=== PATIENT | female | born 1960 | race Caucasian/White ===

== ENCOUNTER → 2017-01-22 | Outpatient (REF) | payer BC | LOC: M SFHCPLAZ 16:57 | PROVIDERS: ATTEND Dermatology | DX: L83 Acanthosis nigricans (principal) ==

== ENCOUNTER → 2017-07-05 | Outpatient (REF) | payer BC | LOC: M SFHCWAGY 15:29 | PROVIDERS: ATTEND Nurse Practitioner Family | DX: A60.04 Herpesviral vulvovaginitis (principal) ==

== ENCOUNTER → 2017-11-18 | Outpatient (CLI) | payer BC | LOC: M WHC 13:54 | DX: Z12.31 Encounter for screening mammogram for malignant neoplasm of breast (principal) | CPT/HCPCS: 77067 ==

== ENCOUNTER → 2018-02-19 | Outpatient (CLI) | payer BC ==
[2018-02-19 08:18] LABS: HEMATOCRIT 38.6 % (36.0-47.0); HEMOGLOBIN 13.4 g/dl (12.0-15.5); MEAN CORPUSCULAR HEMOGLOBIN 33.8 pg (27.0-33.0); MEAN CORPUSCULAR HGB CONC 34.7 g/dl (32.0-36.5); MEAN CORPUSCULAR VOLUME 97.2 fl (80.0-96.0); PLATELET COUNT, AUTOMATED 244 10^3/uL (150-450); RED BLOOD COUNT 3.97 10^6/uL (4.00-5.40); RED CELL DISTRIBUTION WIDTH 11.3 % (11.5-14.5); WHITE BLOOD COUNT 5.4 10^3/uL (4.0-10.0)
[2018-02-19 08:38] LABS: ALBUMIN 4.1 GM/DL (3.2-5.2); ALBUMIN/GLOBULIN RATIO 1.32 (1.00-1.93); ALKALINE PHOSPHATASE 74 U/L (45-117); ALT/SGPT 27 U/L (12-78); ANION GAP 5 MEQ/L (8-16); AST/SGOT 20 U/L (7-37); BILIRUBIN,TOTAL 0.6 MG/DL (0.2-1.0); BLOOD UREA NITROGEN 12 MG/DL (7-18); CALCIUM LEVEL 8.9 MG/DL (8.5-10.1); CARBON DIOXIDE LEVEL 29 MEQ/L (21-32); CHLORIDE LEVEL 108 MEQ/L (98-107); CHOLESTEROL LEVEL 213 MG/DL (<200); CHOLESTEROL RISK RATIO 2.173 (<5); GLOMERULAR FILTRATION RATE > 60.0 (>51); GLUCOSE, FASTING 105 MG/DL (70-100); HDL CHOLESTEROL 98 MG/DL (>40); LDL CHOLESTEROL 102.6 MG/DL (<100); NON-HDL-C 115 MG/DL; POTASSIUM SERUM 4.4 MEQ/L (3.5-5.1); SODIUM LEVEL 142 MEQ/L (136-145); TOTAL PROTEIN 7.2 GM/DL (6.4-8.2); TRIGLYCERIDES LEVEL 62 MG/DL (<150)
== END ==
LOC: M LAB 07:17
DX: Z00.00 Encounter for general adult medical examination without abnormal findings (principal); Z86.010 Personal history of colon polyps; Z82.49 Family history of ischemic heart disease and other diseases of the circulatory system
CPT/HCPCS: 80053

== ENCOUNTER → 2019-09-05 | Outpatient (CLI) | payer BC ==
[2019-09-05 09:20] LABS: HEMATOCRIT 41.9 % (36.0-47.0); HEMOGLOBIN 14.2 g/dl (12.0-15.5); MEAN CORPUSCULAR HEMOGLOBIN 34.1 pg (27.0-33.0); MEAN CORPUSCULAR HGB CONC 33.9 g/dl (32.0-36.5); MEAN CORPUSCULAR VOLUME 100.5 fl (80.0-96.0); PLATELET COUNT, AUTOMATED 245 10^3/uL (150-450); RED BLOOD COUNT 4.17 10^6/uL (4.00-5.40); WHITE BLOOD COUNT 5.1 10^3/uL (4.0-10.0)
[2019-09-05 09:52] LABS: ALBUMIN 4.1 GM/DL (3.2-5.2); ALT/SGPT 30 U/L (12-78); BILIRUBIN,TOTAL 0.4 MG/DL (0.2-1.0); BLOOD UREA NITROGEN 13 MG/DL (7-18); CALCIUM LEVEL 9.1 MG/DL (8.5-10.1); CARBON DIOXIDE LEVEL 30 MEQ/L (21-32); CHLORIDE LEVEL 108 MEQ/L (98-107); CHOLESTEROL LEVEL 235 MG/DL (<200); CHOLESTEROL RISK RATIO 2.098 (<5); CREATININE FOR GFR 0.66 MG/DL (0.55-1.30); GLOMERULAR FILTRATION RATE > 60.0 (>51); GLUCOSE, FASTING 92 MG/DL (70-100); HDL CHOLESTEROL 112 MG/DL (>40); LDL CHOLESTEROL 103 MG/DL (<100); NON-HDL-C 123 MG/DL; POTASSIUM SERUM 4.3 MEQ/L (3.5-5.1); SODIUM LEVEL 143 MEQ/L (136-145); THYROID STIMULATING HORMONE 0.781 uIU/ML (0.358-3.740); TOTAL PROTEIN 7.7 GM/DL (6.4-8.2); TRIGLYCERIDES LEVEL 100 MG/DL (<150)
== END ==
LOC: M LAB 08:23
PROVIDERS: ATTEND Internal Medicine
DX: Z00.00 Encounter for general adult medical examination without abnormal findings (principal); Z82.49 Family history of ischemic heart disease and other diseases of the circulatory system; R23.2 Flushing

== ENCOUNTER → 2020-04-27 | Outpatient (CLI) | payer BC | LOC: M LABSMTC 10:40 | PROVIDERS: ATTEND Pediatrics | DX: Z11.59 Encounter for screening for other viral diseases (principal) ==

== ENCOUNTER → 2020-10-30 | Outpatient (REF) | payer SELFPAY | LOC: M LABSMTC 10-14 08:35 → EDSTATUS 11:20 | PROVIDERS: ATTEND Pediatrics | DX: Z20.828 Contact with and (suspected) exposure to other viral communicable diseases (principal) ==

== ENCOUNTER → 2021-01-25 | Outpatient (CLI) | payer BC ==
[2021-01-25 07:17] LABS: BASO # 0.1 10^3/uL (0.0-0.2); EOS # 0.3 10^3/uL (0.0-0.5); EOS % 4.9 % (0.0-3.0); HEMATOCRIT 42.1 % (36.0-47.0); HEMOGLOBIN 14.1 g/dl (12.0-15.5); LYMPH % 59.1 % (24.0-44.0); MEAN CORPUSCULAR HEMOGLOBIN 33.4 pg (27.0-33.0); MEAN CORPUSCULAR HGB CONC 33.5 g/dl (32.0-36.5); MEAN CORPUSCULAR VOLUME 99.8 fl (80.0-96.0); MONO # 0.3 10^3/uL (0.0-0.8); MONO % 5.7 % (2.0-8.0); NEUTROPHILS # 1.5 10^3/uL (1.5-8.5); NEUTROPHILS % 29.3 % (36.0-66.0); PLATELET COUNT, AUTOMATED 278 10^3/uL (150-450); RED BLOOD COUNT 4.22 10^6/uL (4.00-5.40); WHITE BLOOD COUNT 5.1 10^3/uL (4.0-10.0)
[2021-01-25 07:46] LABS: ALBUMIN 4.2 GM/DL (3.2-5.2); ALT/SGPT 30 U/L (12-78); BILIRUBIN,TOTAL 0.3 MG/DL (0.2-1.0); BLOOD UREA NITROGEN 10 MG/DL (7-18); CALCIUM LEVEL 9.2 MG/DL (8.5-10.1); CARBON DIOXIDE LEVEL 31 MEQ/L (21-32); CHLORIDE LEVEL 102 MEQ/L (98-107); CHOLESTEROL LEVEL 250 MG/DL (<200); CHOLESTEROL RISK RATIO 1.798 (<5); CREATININE FOR GFR 0.61 MG/DL (0.55-1.30); GLOMERULAR FILTRATION RATE > 60.0 (>51); GLUCOSE, FASTING 85 MG/DL (70-100); HDL CHOLESTEROL 139 MG/DL (>40); LDL CHOLESTEROL 85 MG/DL (<100); NON-HDL-C 111 MG/DL; POTASSIUM SERUM 3.9 MEQ/L (3.5-5.1); SODIUM LEVEL 139 MEQ/L (136-145); TOTAL PROTEIN 7.5 GM/DL (6.4-8.2); TRIGLYCERIDES LEVEL 130 MG/DL (<150)
[2021-01-25 11:25] LABS: HEPATITIS C VIRUS ABY INDEX < 0.0 INDEX (<0.8)
== END ==
LOC: M LAB 06:32
PROVIDERS: ATTEND Internal Medicine
DX: E78.00 Pure hypercholesterolemia, unspecified (principal); Z86.010 Personal history of colon polyps

== ENCOUNTER → 2021-02-20 | Outpatient (REF) | payer BC ==
[2021-02-20 13:44] LABS: APPEARANCE, URINE HAZY (CLEAR); BACTERIA, URINE AUTO NEGATIVE (NEGATIVE); BILIRUBIN, URINE AUTO NEGATIVE (NEGATIVE); BLOOD, URINE BLOOD NEGATIVE (NEGATIVE); COLOR, URINE YELLOW (YELLOW); GLUCOSE, URINE (UA) AUTO NEGATIVE (NEGATIVE); KETONE, URINE AUTO NEGATIVE (NEGATIVE); LEUKOCYTE ESTERASE, URINE AUTO NEGATIVE (NEGATIVE); NITRITE, URINE AUTO NEGATIVE (NEGATIVE); PROTEIN, URINE AUTO NEGATIVE (NEGATIVE); RBC, URINE AUTO 0 /HPF (0-3); SPECIFIC GRAVITY URINE AUTO 1.006 (1.002-1.035); SQUAMOUS EPITHELIAL CELL UR AU 0 /HPF (0-6); UROBILINOGEN, URINE AUTO 0.2 mg/dL (0.0-2.0); WBC, URINE AUTO 0 /HPF (0-3)
== END ==
LOC: M SFHCPLAZ 13:26
PROVIDERS: ATTEND Internal Medicine
DX: R10.9 Unspecified abdominal pain (principal)

== ENCOUNTER → 2021-02-27 | Outpatient (CLI) | payer BC ==
--- NOTE | 2021-02-28 08:41 | REPMRS ---
Patient History The patient states she has not had a clinical breast exam in over a year. Patient has history of other cancer at age 56. Family history of prostate cancer at age 79 in father. No Hormone Replacement Therapy Patient states no breast complaints today. Patient has signed MRS History Sheet. Digital Woman Screen Mammo: February 27, 2021 - Exam #: [id number] Bilateral CC and MLO view(s) were taken. Technologist: Archana Clemens, Technologist Prior study comparison: November 18, 2017, digital woman screen mammo performed at [facility]. September 17, 2016, digital woman screen mammo performed at [facility]. FINDINGS: The breast tissue is heterogeneously dense. This may lower the sensitivity of mammography. Screening. Digital screening (2D) mammography was performed bilaterally in the CC and MLO projections. Additionally, breast tomosynthesis (3D mammography) was performed bilaterally in the CC and MLO projections. Todays exam was compared to the prior exams(s). By history, the patient has no complaints of a palpable breast abnormality or other significant breast complaints. The breasts are unchanged in size and shape.Once again, dense heterogenous fibroglandular elements are seen bilaterally in a stable appearing pattern but to such a degree that the sensitivity of the mammogram in detecting cancer is decreased. There are no brittney-soft tissue densities or spiculated masses. There is no internal architectural distortion. Once again, stable benign appearing calcifications are seen.There are no suspicious brittney-calcific clusters. Skin thickening or nipple retraction is not present. IMPRESSION: BI-RADS Category 2- Benign Findings(s). There is no evidence of malignant alteration of the breasts. Followup examination recommended in one year. This mammogram was read with the assistance of U[employer]kk[employer]ailma[employer]fi,an FDA approved computer aided detection system for mammography. The Volpara volumetric breast density category is C, the breasts are heterogenously dense which may obscure small masses. Negative x-ray reports should not delay surgical consultation if a dominant or clinically suspicious mass is present. The lifetime Tyrer-Cuzick score is 7.2% Not all breast cancers can be identified by mammography. Therefore, we recommend that you continue to perform regular breast self-examination and physical examination and then promptly contact your physician of any concerns or changes. Adenosis and dense breasts may obscure an underlying neoplasm. Assessment: BI-RADS/ACR category 2 mammogram. Benign Findings. Recommendation Routine screening mammogram of both breasts in 1 year. Electronically Signed By: Kj Novak DO 02/28/21 0841
== END ==
LOC: M WHC 15:56
PROVIDERS: ATTEND Internal Medicine
DX: Z12.31 Encounter for screening mammogram for malignant neoplasm of breast (principal); Z80.42 Family history of malignant neoplasm of prostate; Z85.9 Personal history of malignant neoplasm, unspecified

== ENCOUNTER → 2021-03-06 | Outpatient (CLI) | payer BC ==
--- NOTE | 2021-03-06 16:37 | REP ---
INDICATION: ABDOMINAL PAIN,SCREENING FOR MALIGNANT NEOPLASM OF COMPARISON: None TECHNIQUE: Real time solorio scale ultrasound examination using curved array transducer. FINDINGS: Bilateral kidneys are normal in contour, size, echogenicity, and reniform shape without hydronephrosis, nephrolithiasis, cystic or renal mass lesion. Right kidney measures 10.2 x 5.0 x 4.1 cm. Left kidney measures 11.0 x 4.9 x 5.7 cm. Bladder is unremarkable. Incidental 2.9 cm hepatic cyst in the visualized right lobe and large 10.5 cm complex right adnexal cyst with debris noted. IMPRESSION: Normal appearance of the bilateral kidneys. 10.5 cm complex right adnexal cyst warrants further investigation. 2.9 cm simple hepatic cyst. <Electronically signed by Byron Lennon > 03/06/21 [id number]
== END ==
LOC: M RAD 15:58
PROVIDERS: ATTEND Internal Medicine
DX: R10.9 Unspecified abdominal pain (principal); K76.89 Other specified diseases of liver; N83.8 Other noninflammatory disorders of ovary, fallopian tube and broad ligament

== ENCOUNTER → 2021-03-08 | Outpatient (REF) | payer BC ==
[2021-03-08 13:35] LABS: CA 125 6.7 U/ML (<30.2); CA19-9 TUMOR MARKER,CARBOHYDRA 5.4 U/ML (<35.0)
== END ==
LOC: M PLALAB 09:13
PROVIDERS: ATTEND Obstetrics & Gynecology
DX: N83.291 Other ovarian cyst, right side (principal)

== ENCOUNTER → 2021-03-30 | Outpatient (CLI) | payer BC ==
--- NOTE | 2021-03-30 08:20 | REP ---
INDICATION: COMPLEX CYST OF RT OVARY COMPARISON: None TECHNIQUE: Axial noncontrast images from the lung bases to the pubic symphysis with coronal and sagittal reformations. This CT examination was performed using the following dose reduction techniques: Automated exposure control, adjustment of mA and/or kv according to the patient's size, and use of iterative reconstruction technique. FINDINGS: Complex large septated cystic lesion possibly arising from the left adnexa measures roughly 13.1 x 9.5 x 8.2 cm. No pelvic free fluid or adenopathy is appreciated. Patient is noted to be status post hysterectomy. Liver demonstrates few hypodensities most compatible with cysts measuring up to approximately 2 cm. Spleen, pancreas, gallbladder, bilateral adrenal glands and right kidney are normal. Left kidney includes 2 mm nonobstructing calculus. The enteric system is without obstruction or acute inflammatory process. Normal terminal ileum and appendix are identified in the right lower quadrant. Pelvis demonstrates normal bladder. No ascites. No free air. No adenopathy. Abdominal aorta without aneurysm. Musculoskeletal structures are intact. Lung bases demonstrate a 16 mm spiculated mass at the right lung base in the anterior right lower lobe consistent with malignancy unless proven otherwise. IMPRESSION: 1. 16 mm spiculated mass in the right lung base consistent with malignancy unless proven otherwise. Immediate attention is recommended. Further imaging evaluation may include PET-CT and/or contrast-enhanced chest CT as well as CT-guided biopsy if necessary. 2. Complex cystic lesion in the pelvis likely arising from the left adnexa appears benign. 3. Multiple hepatic hypodensities likely cysts measuring up to 2 cm. 4. 2 mm nonobstructing left renal calculus. <Electronically signed by Byron Lennon > 03/30/21 0889
== END ==
LOC: M RAD 07:19
PROVIDERS: ATTEND Obstetrics & Gynecology
DX: N83.291 Other ovarian cyst, right side (principal); K76.89 Other specified diseases of liver; N20.0 Calculus of kidney; R91.8 Other nonspecific abnormal finding of lung field

== ENCOUNTER → 2021-04-05 | Outpatient (CLI) | payer BC ==
[2021-04-05 08:40] LABS: PLATELET COUNT, AUTOMATED 259 10^3/uL (150-450)
[2021-04-05 09:04] LABS: BLOOD UREA NITROGEN 12 MG/DL (7-18); CREATININE FOR GFR 0.61 MG/DL (0.55-1.30); GLOMERULAR FILTRATION RATE > 60.0 (>51)
[2021-04-05 09:14] LABS: INR 0.85; PARTIAL THROMBOPLASTIN TIME 25.8 SECONDS (24.2-38.5); PROTHROMBIN TIME 11.8 SECONDS (12.5-14.3)
== END ==
LOC: M LAB 07:44
PROVIDERS: ATTEND Internal Medicine Pulmonary Disease
DX: R91.1 Solitary pulmonary nodule (principal)

== ENCOUNTER → 2021-04-05 | Outpatient (CLI) | payer BC ==
[~2021-04-05] MED LIST: ISOVUE-370 76% 100ML VIAL As Ordered ONE
--- NOTE | 2021-04-05 11:38 | REP ---
INDICATION: SOLITARY PULMONARY NODULE COMPARISON: None TECHNIQUE: Axial contrast enhanced images from the thoracic inlet to the upper abdomen with coronal and sagittal reformations using 75 ml Isovue 370 intravenous contrast material. This CT examination was performed using the following dose reduction techniques: Automated exposure control, adjustment of mA and/or kv according to the patient's size, and use of iterative reconstruction technique. FINDINGS: There is a 1.6 cm mildly enhancing mass along the anterior right lower lobe with spiculated margins consistent with malignancy unless proven otherwise. Remainder of lung corona are relatively well aerated and clear. Mild biapical scarring is noted. No further consolidation, significant nodule or mass lesion appreciated. No pleural effusion. No pneumothorax. No adenopathy identified. Thoracic aorta, pulmonary vasculature, and heart/pericardium are relatively normal. No pericardial effusion. Limited upper abdomen demonstrates normal bilateral adrenal glands and multiple stable hepatic hypodensities suggesting cysts. IMPRESSION: 1.6 cm right lower lobe lung mass with spiculated margins consistent with malignancy and requires further investigation. Consider PET-CT and/or biopsy. No associated adenopathy. No pleural effusion. No satellite lesions. . <Electronically signed by Byron Lennon > 04/05/21 [id number]
== END ==
LOC: M RAD 10:56
PROVIDERS: ATTEND Internal Medicine Pulmonary Disease
DX: R91.1 Solitary pulmonary nodule (principal)
CPT/HCPCS: 71260; Q9967

== ENCOUNTER → 2021-04-21 | Outpatient (CLI) | payer BC ==
[~2021-04-21] MED LIST changes: -ISOVUE-370 76% 100ML VIAL As Ordered ONE; +VALA500T5 PO; +VITMTA PO
== END ==
LOC: M LABSMTC 11:09
PROVIDERS: ATTEND Anesthesiology
DX: Z01.812 Encounter for preprocedural laboratory examination (principal); Z20.822 Contact with and (suspected) exposure to COVID-19

== ENCOUNTER 2021-04-26 07:59 | Day surgery (SDC) | payer BC ==
[~2021-04-26] VITALS: Ht 160 cm; Wt 59.4 kg
[~2021-04-26 07:59] MED LIST changes: +ALBUTEROL SULFATE 2.5 MG/0.5 ML INH NEB SOLN INH ONE; +KETOROLAC 60MG 2ML VIAL As Ordered ONE; +LIDOCAINE 2% 100MG/5ML SDV (FOR ANES.) As Ordered ONE; +LIDOCAINE 4% INJ 5ML AMP INH ONE; +LR 1,000 ML IV ONE; +MIDAZOLAM INJ 2MG/2ML VIAL (J2250 PER 1MG) As Ordered ONE; +ONDANSETRON 4MG/2ML VIAL As Ordered ONE; +ROCURONIUM BROMIDE 50 MG/5 ML VIAL As Ordered ONE; +SUGAMMADEX SODIUM 500 MG/5 ML VIAL (BRIDION) As Ordered ONE; +dexameTHASONE 4 MG/ML 1ML VIAL (J1100 PER 1MG) As Ordered ONE; +fentaNYL 100 MCG/2 ML INJECTION (J3010) As Ordered ONE; +propofoL 200 MG/20 ML VIAL As Ordered ONE
[2021-04-26] MEDS ORDERED: CETACAINE SPRAY 5GM As Ordered ONE (08:34)
[2021-04-26] MEDS ORDERED: EPINEPHrine 1MG/10ML SYRINGE 1.5IN As Ordered ONE (08:34)
[2021-04-26] MEDS ORDERED: SCOPOLAMINE 1MG TRANSDERMAL PATCH TOP ONE (08:45)
[2021-04-26] MEDS ORDERED: LABETALOL 100MG/20ML VIAL As Ordered ONE (09:51)
[2021-04-26] MEDS ORDERED: oxyCODONE 5MG TAB PO PRN (10:35)
[2021-04-26] MEDS ORDERED: ONDANSETRON 4MG/2ML VIAL IV PRN (10:35)
[2021-04-26] MEDS ORDERED: LR 1,000 ML IV SCH (10:35)
[2021-04-26] MEDS ORDERED: fentaNYL 100 MCG/2 ML INJECTION (J3010) IV PRN (10:35)
[2021-04-26] MEDS ORDERED: MORPHINE 2 MG/ML 1ML VIAL (J2270) IV PRN (10:35)
[2021-04-26] MEDS ORDERED: HYDROMORPHONE HCL 0.5 MG/ 0.5 ML SYRINGE (J1170 PER 1) IV PRN (10:35)
--- NOTE | 2021-04-26 10:47 | REP ---
INDICATION: POST OP IN PACU/BRONCHOSCOPY COMPARISON: 03/22/2011 TECHNIQUE: Portable AP view of the chest FINDINGS: Small to moderate right pneumothorax of approximately 10-15%. Mediastinum and cardiac silhouette normal. No focal consolidation or effusion. Skeletal structures intact. IMPRESSION: Small to moderate right pneumothorax. <Electronically signed by Byron Lennon > 04/26/21 104
--- NOTE | 2021-04-26 10:47 | RO ---
OPERATIVE NOTE DATE OF OPERATION: 04/26/2021 PREOPERATIVE DIAGNOSIS: Right lower lobe nodule. POSTOPERATIVE DIAGNOSIS: Right lower lobe nodule. FINDINGS: Smoker's airway with banding and pitting. PROCEDURE: Bronchoscopy with endobronchial ultrasound, radial probe, and robotic bronchoscopy. PROCEDURALIST: Harrison Schultz D.O. STUDENT LOAN COUNSELOR: Althea Dobbins M.D. ANESTHESIA: General. ESTIMATED BLOOD LOSS: Less than 5 mL. SPECIMEN(S) OBTAINED: 1. Transbrochial biopsies right lower lobe. 2. Bronchoalveolar lavage (BAL) right lower lobe. DESCRIPTION OF PROCEDURE: After informed consent was reviewed with the patient, she was brought back to OR #8, which is a premapped room. The patient was intubated with an 8.5 endotracheal tube and she was handed over to me. A time-out was performed with two patient identifiers identify correct site and correct procedure. Cetacaine spray was then used to anesthetize the airway and provide lubrication for the 1T190 bronchoscope. The 1T190 bronchoscope was inserted into the area. The trachea was sharp. The sherry was sharp. The right mainstem bronchi were normal without endobronchial lesions. RB1 through 10 was inspected without endobronchial lesions with minimal amount of banding and pitting. Again, LB1 through 10 was inspected without endobronchial lesions. The 1T190 bronchoscope was removed. Robotic bronchoscopy was inserted. Automatic registration was performed and the right lower lobe and nodule were easily navigated to. Endobronchial ultrasound showed large eccentric nodule. Biopsies were performed of this lesion. 1% epinephrine was administered prior to biopsies. After transbronchial biopsies were performed, BAL was performed and robotic bronchoscope was removed. The 1T190 bronchoscope was reinserted to inspect airways. All airways were normal. No evidence of bleeding. After hemostasis was assured, the bronchoscope was removed and the case was handed over to anesthesia. The patient was extubated. Postprocedure chest x-ray is pending. Post procedure cxr shows small pneumothorax on the right. The patient was monitored in the PACU for another 2 hours with repeat imaging showing no significant progression but no significant improvement in the pneumothorax. She felt well without dyspnea or chest discomfort, I called later that evening, patient state she was feeling well with minimal inspiratory discomfort. [facility]
--- NOTE | 2021-04-26 11:14 | REP ---
INDICATION: RIGHT LOWER LOBE ABNORMALITY. COMPARISON: None. TECHNIQUE: Four views. 4 minutes 3 seconds of fluoroscopy time is reported. FINDINGS: A sequence of 4 last image hold fluoroscopically obtained spot radiographs of the right chest document bronchoscopic procedure and associated manipulation. IMPRESSION: Procedural imaging. <Electronically signed by Gregg Johnson > 04/26/21 1111
--- NOTE | 2021-04-26 12:55 | REP ---
INDICATION: POST OP IN PACU/BRONCHOSCOPY REPEAT XR. COMPARISON: Earlier today TECHNIQUE: Portable FINDINGS: The technique utilized in obtaining the radiograph has magnified the cardiac silhouette and attenuated the interstitial markings. New right basilar curvilinear opacities have developed since the last exam. The small right-sided pneumothorax is unchanged. Cardiomediastinal silhouette and osseous structures are stable. IMPRESSION: 1. Right basilar curvilinear densities likely subsegmental atelectatic changes. 2. Unchanged right pneumothorax. <Electronically signed by Kj Novak > 04/26/21 [id number]
[2021-04-26 13:33] VITALS: BP 148/67
--- NOTE | 2021-04-27 07:26 | ECGEPIP ---
[facility] Test Date: 2021-04-26 Pat Name: SARAVANAN BROOKS Department: Room: - Gender: Female Residential Youth Counselor: CATHY : 1960 Requested By: KYLE MILLS Order Number: [id number] Reading MD: Paul Griggs Measurements Intervals Lueders Rate: 67 P: 63 PA: 138 QRS: 31 QRSD: 76 T: 52 QT: 424 QTc: 448 Interpretive Statements Normal sinus rhythm normal Electronically Signed on 04-27-2021 7:25:38 EDT by Paul Griggs
== END 2021-04-26 13:30 | disposition home or self-care (01) ==
LOC: M SDC 07:59
PROVIDERS: ATTEND Internal Medicine Pulmonary Disease
DX: J21.9 Acute bronchiolitis, unspecified (principal); J43.9 Emphysema, unspecified; I10 Essential (primary) hypertension; Z79.899 Other long term (current) drug therapy; Z87.891 Personal history of nicotine dependence
CPT/HCPCS: 31624; 31628; 31652; 71045; 76000; 87070; 87102; 87116; 87205; 87206; 88305; 93005; J1100; J1885; J2250; J2405; J3010; S2900

== ENCOUNTER → 2021-04-27 | Outpatient (CLI) | payer BC ==
[~2021-04-27] MED LIST changes: -ALBUTEROL SULFATE 2.5 MG/0.5 ML INH NEB SOLN INH ONE; -KETOROLAC 60MG 2ML VIAL As Ordered ONE; -LIDOCAINE 2% 100MG/5ML SDV (FOR ANES.) As Ordered ONE; -LIDOCAINE 4% INJ 5ML AMP INH ONE; -LR 1,000 ML IV ONE; -MIDAZOLAM INJ 2MG/2ML VIAL (J2250 PER 1MG) As Ordered ONE; -ONDANSETRON 4MG/2ML VIAL As Ordered ONE; -ROCURONIUM BROMIDE 50 MG/5 ML VIAL As Ordered ONE; -SUGAMMADEX SODIUM 500 MG/5 ML VIAL (BRIDION) As Ordered ONE; -dexameTHASONE 4 MG/ML 1ML VIAL (J1100 PER 1MG) As Ordered ONE; -fentaNYL 100 MCG/2 ML INJECTION (J3010) As Ordered ONE; -propofoL 200 MG/20 ML VIAL As Ordered ONE
--- NOTE | 2021-04-27 10:34 | REP ---
INDICATION: R91.1 SOLITARY PULMONARY NODULE J95.811 POSTPROCEDURAL PBEUM COMPARISON: 04/26/2021 TECHNIQUE: PA and lateral. FINDINGS: Small right apical pneumothorax of approximately 10-15% is unchanged. Trace right basilar atelectasis noted. Mediastinum and cardiac silhouette along with aerated lung corona are clear. Skeletal structures intact. IMPRESSION: Small stable right apical pneumothorax and minimal right basilar atelectasis. <Electronically signed by Byron Lennon > 04/27/21 1038
== END ==
LOC: M PLALAB 09:50 → M PLAIMG 09:50
PROVIDERS: ATTEND Internal Medicine Pulmonary Disease
DX: R91.1 Solitary pulmonary nodule (principal); J95.811 Postprocedural pneumothorax; J98.11 Atelectasis

== ENCOUNTER → 2021-05-05 | Outpatient (CLI) | payer BC ==
--- NOTE | 2021-05-05 11:12 | REP ---
INDICATION: SOLITARY PULMONARY NODULE COMPARISON: 04/27/2021 TECHNIQUE: PA and lateral. FINDINGS: Subtle opacity along the medial right lower lobe with suspected small underlying nodular density consistent with known pulmonary nodule. A miniscule residual right apical pneumothorax is suggested and barely perceptible. Remainder of the examination is unremarkable. Aerated lung corona are clear. No effusion. Mediastinum and cardiac silhouette are normal. IMPRESSION: 1. Known opacity at the medial right lung base. 2. Miniscule barely perceptible residual right apical pneumothorax. <Electronically signed by Byron Lennon > 05/05/21 1107
== END ==
LOC: M PLAIMG 10:29
PROVIDERS: ATTEND Internal Medicine Pulmonary Disease
DX: R91.1 Solitary pulmonary nodule (principal)

== ENCOUNTER → 2021-08-10 | Outpatient (CLI) | payer BC ==
[2021-08-10 14:08] LABS: BASO # 0.1 10^3/uL (0.0-0.2); BASO % 1.4 % (0.0-1.0); EOS # 0.1 10^3/uL (0.0-0.5); EOS % 0.9 % (0.0-3.0); HEMATOCRIT 34.5 % (36.0-47.0); HEMOGLOBIN 11.8 g/dl (12.0-15.5); LYMPH # 2.7 10^3/uL (1.5-5.0); LYMPH % 42.1 % (24.0-44.0); MEAN CORPUSCULAR HEMOGLOBIN 33.8 pg (27.0-33.0); MEAN CORPUSCULAR HGB CONC 34.2 g/dl (32.0-36.5); MEAN CORPUSCULAR VOLUME 98.9 fl (80.0-96.0); MONO # 0.7 10^3/uL (0.0-0.8); MONO % 10.4 % (2.0-8.0); NEUTROPHILS # 2.8 10^3/uL (1.5-8.5); NEUTROPHILS % 43.6 % (36.0-66.0); PLATELET COUNT, AUTOMATED 312 10^3/uL (150-450); RED BLOOD COUNT 3.49 10^6/uL (4.00-5.40); WHITE BLOOD COUNT 6.4 10^3/uL (4.0-10.0)
== END ==
LOC: M LAB 13:41
DX: C34.80 Malignant neoplasm of overlapping sites of unspecified bronchus and lung (principal)

== ENCOUNTER → 2021-08-31 | Outpatient (CLI) | payer BC ==
[2021-08-31 12:45] LABS: HEMATOCRIT 33.6 % (36.0-47.0); HEMOGLOBIN 11.4 g/dl (12.0-15.5); MEAN CORPUSCULAR HEMOGLOBIN 34.2 pg (27.0-33.0); MEAN CORPUSCULAR HGB CONC 33.9 g/dl (32.0-36.5); MEAN CORPUSCULAR VOLUME 100.9 fl (80.0-96.0); PLATELET COUNT, AUTOMATED 283 10^3/uL (150-450); RED BLOOD COUNT 3.33 10^6/uL (4.00-5.40); WHITE BLOOD COUNT 15.2 10^3/uL (4.0-10.0)
== END ==
LOC: M LAB 12:06
PROVIDERS: ATTEND Internal Medicine Medical Oncology
DX: C34.80 Malignant neoplasm of overlapping sites of unspecified bronchus and lung (principal)

== ENCOUNTER → 2021-09-19 | Outpatient (REF) | LOC: M EMP 12:05 | PROVIDERS: ATTEND Family Medicine | DX: Z20.822 Contact with and (suspected) exposure to COVID-19 (principal) ==

== ENCOUNTER → 2021-10-30 | Outpatient (CLI) | payer BC ==
[2021-10-30 17:20] LABS: HEMATOCRIT 33.3 % (36.0-47.0); HEMOGLOBIN 11.3 g/dl (12.0-15.5); MEAN CORPUSCULAR HEMOGLOBIN 36.9 pg (27.0-33.0); MEAN CORPUSCULAR HGB CONC 33.9 g/dl (32.0-36.5); MEAN CORPUSCULAR VOLUME 108.8 fl (80.0-96.0); PLATELET COUNT, AUTOMATED 229 10^3/uL (150-450); RED BLOOD COUNT 3.06 10^6/uL (4.00-5.40); WHITE BLOOD COUNT 5.4 10^3/uL (4.0-10.0)
[2021-10-30 17:31] LABS: ALBUMIN 4.2 GM/DL (3.2-5.2); ALT/SGPT 27 U/L (12-78); BILIRUBIN,TOTAL 0.3 MG/DL (0.2-1.0); BLOOD UREA NITROGEN 16 MG/DL (7-18); CALCIUM LEVEL 9.1 MG/DL (8.8-10.2); CARBON DIOXIDE LEVEL 30 MEQ/L (21-32); CHLORIDE LEVEL 104 MEQ/L (98-107); CREATININE FOR GFR 0.75 MG/DL (0.55-1.30); GLOMERULAR FILTRATION RATE > 60.0 (>45); GLUCOSE, FASTING 85 MG/DL (70-100); POTASSIUM SERUM 4.7 MEQ/L (3.5-5.1); SODIUM LEVEL 138 MEQ/L (136-145); TOTAL PROTEIN 7.2 GM/DL (6.4-8.2)
== END ==
LOC: M LAB 15:54
PROVIDERS: ATTEND Internal Medicine Medical Oncology
DX: C34.80 Malignant neoplasm of overlapping sites of unspecified bronchus and lung (principal)

== ENCOUNTER → 2021-11-15 | Outpatient (REF) | LOC: M LABSMTC 09:58 | PROVIDERS: ATTEND Pediatrics | DX: Z11.52 Encounter for screening for COVID-19 (principal) ==

== ENCOUNTER → 2022-03-13 | Outpatient (CLI) | payer BC ==
[~2022-03-13] MED LIST changes: +SODIUM CHLORIDE 0.9% INJ 10 ML SYR IV PRN
== END ==
LOC: M ONCM 11:02
DX: C34.80 Malignant neoplasm of overlapping sites of unspecified bronchus and lung (principal)

== ENCOUNTER → 2022-03-13 | Outpatient (REF) | payer BC ==
[~2022-03-13] MED LIST changes: -SODIUM CHLORIDE 0.9% INJ 10 ML SYR IV PRN
[2022-03-13 12:05] LABS: BASO % 0.2 % (0.0-1.0); EOS # 0.2 10^3/uL (0.0-0.5); EOS % 1.8 % (0.0-3.0); HEMATOCRIT 34.9 % (36.0-47.0); HEMOGLOBIN 11.9 g/dl (12.0-15.5); LYMPH # 0.8 10^3/uL (1.5-5.0); LYMPH % 7.2 % (24.0-44.0); MEAN CORPUSCULAR HEMOGLOBIN 34.9 pg (27.0-33.0); MEAN CORPUSCULAR HGB CONC 34.1 g/dl (32.0-36.5); MEAN CORPUSCULAR VOLUME 102.3 fl (80.0-96.0); MONO # 0.6 10^3/uL (0.0-0.8); MONO % 5.2 % (2.0-8.0); NEUTROPHILS # 9.4 10^3/uL (1.5-8.5); NEUTROPHILS % 85.1 % (36.0-66.0); PLATELET COUNT, AUTOMATED 246 10^3/uL (150-450); RED BLOOD COUNT 3.41 10^6/uL (4.00-5.40); WHITE BLOOD COUNT 11.1 10^3/uL (4.0-10.0)
[2022-03-13 12:29] LABS: ALBUMIN 3.2 GM/DL (3.2-5.2); ALT/SGPT 150 U/L (12-78); BILIRUBIN,TOTAL 0.4 MG/DL (0.2-1.0); BLOOD UREA NITROGEN 12 MG/DL (7-18); CALCIUM LEVEL 8.9 MG/DL (8.8-10.2); CARBON DIOXIDE LEVEL 27 MEQ/L (21-32); CHLORIDE LEVEL 105 MEQ/L (98-107); CREATININE FOR GFR 0.75 MG/DL (0.55-1.30); GLOMERULAR FILTRATION RATE > 60.0 (>45); GLUCOSE, FASTING 202 MG/DL (70-100); POTASSIUM SERUM 3.6 MEQ/L (3.5-5.1); SODIUM LEVEL 138 MEQ/L (136-145); TOTAL PROTEIN 6.6 GM/DL (6.4-8.2)
== END ==
LOC: M LAB REF 11:16
PROVIDERS: ATTEND Internal Medicine Medical Oncology
DX: C34.80 Malignant neoplasm of overlapping sites of unspecified bronchus and lung (principal)

== ENCOUNTER → 2022-04-06 | Outpatient (REF) | payer BC ==
[2022-04-06 11:39] LABS: BASO % 0.7 % (0.0-1.0); EOS # 0.1 10^3/uL (0.0-0.5); EOS % 2.5 % (0.0-3.0); HEMATOCRIT 37.5 % (36.0-47.0); HEMOGLOBIN 12.9 g/dl (12.0-15.5); LYMPH # 1.1 10^3/uL (1.5-5.0); MEAN CORPUSCULAR HEMOGLOBIN 34.1 pg (27.0-33.0); MEAN CORPUSCULAR HGB CONC 34.4 g/dl (32.0-36.5); MEAN CORPUSCULAR VOLUME 99.2 fl (80.0-96.0); MONO # 0.6 10^3/uL (0.0-0.8); MONO % 9.9 % (2.0-8.0); NEUTROPHILS # 3.8 10^3/uL (1.5-8.5); NEUTROPHILS % 67.5 % (36.0-66.0); PLATELET COUNT, AUTOMATED 231 10^3/uL (150-450); RED BLOOD COUNT 3.78 10^6/uL (4.00-5.40); WHITE BLOOD COUNT 5.6 10^3/uL (4.0-10.0)
[2022-04-06 11:55] LABS: INR 0.92; PROTHROMBIN TIME 12.8 SECONDS (12.7-14.5)
[2022-04-06 11:56] LABS: PARTIAL THROMBOPLASTIN TIME 30.1 SECONDS (25.9-37.0)
[2022-04-06 11:58] LABS: D-DIMER QUANT 2947.13 ng/ml (<500)
[2022-04-06 12:34] LABS: ALBUMIN 3.1 GM/DL (3.2-5.2); ALT/SGPT 39 U/L (12-78); BILIRUBIN,TOTAL 0.4 MG/DL (0.2-1.0); BLOOD UREA NITROGEN 8 MG/DL (7-18); CARBON DIOXIDE LEVEL 27 MEQ/L (21-32); CHLORIDE LEVEL 105 MEQ/L (98-107); CREATININE FOR GFR 0.68 MG/DL (0.55-1.30); GLOMERULAR FILTRATION RATE > 60.0 (>45); GLUCOSE, FASTING 117 MG/DL (70-100); LDH LACTATE DEHYDROGENASE 422 U/L (84-246); PHOSPHORUS LEVEL 3.4 MG/DL (2.5-4.9); POTASSIUM SERUM 4.1 MEQ/L (3.5-5.1); SODIUM LEVEL 136 MEQ/L (136-145); TOTAL PROTEIN 6.6 GM/DL (6.4-8.2)
== END ==
LOC: M LAB REF 11:20
PROVIDERS: ATTEND Internal Medicine Medical Oncology
DX: C34.80 Malignant neoplasm of overlapping sites of unspecified bronchus and lung (principal)

== ENCOUNTER → 2022-05-23 | Outpatient (CLI) | payer BC ==
[2022-05-23 14:26] LABS: HEMATOCRIT 27.7 % (36.0-47.0); HEMOGLOBIN 9.3 g/dl (12.0-15.5); MEAN CORPUSCULAR HEMOGLOBIN 33.3 pg (27.0-33.0); MEAN CORPUSCULAR HGB CONC 33.6 g/dl (32.0-36.5); MEAN CORPUSCULAR VOLUME 99.3 fl (80.0-96.0); PLATELET COUNT, AUTOMATED 224 10^3/uL (150-450); RED BLOOD COUNT 2.79 10^6/uL (4.00-5.40); WHITE BLOOD COUNT 11.7 10^3/uL (4.0-10.0)
[2022-05-23 15:01] LABS: ALT/SGPT 139 U/L (12-78); BILIRUBIN,DIRECT 4.9 MG/DL (0.0-0.2); BILIRUBIN,TOTAL 5.8 MG/DL (0.2-1.0); BLOOD UREA NITROGEN 15 MG/DL (7-18); CALCIUM LEVEL 9.9 MG/DL (8.8-10.2); CARBON DIOXIDE LEVEL 21 MEQ/L (21-32); CHLORIDE LEVEL 105 MEQ/L (98-107); CREATININE FOR GFR 0.78 MG/DL (0.55-1.30); GLOMERULAR FILTRATION RATE > 60.0 (>45); GLUCOSE, FASTING 119 MG/DL (70-100); POTASSIUM SERUM 4.6 MEQ/L (3.5-5.1); SODIUM LEVEL 136 MEQ/L (136-145); TOTAL PROTEIN 6.4 GM/DL (6.4-8.2)
== END ==
LOC: M LAB 14:02
PROVIDERS: ATTEND Internal Medicine Medical Oncology
DX: C34.80 Malignant neoplasm of overlapping sites of unspecified bronchus and lung (principal)